=== PATIENT | female | born 1980 | race Hispanic/Latino ===

== ENCOUNTER 2021-12-27 23:59 | Emergency (ER) | payer SELFPAY ==
[2021-12-28] MEDS ORDERED: Boostrix 0.5 ML (Tdap) VIAL ONE (05:12)
== END 2021-12-28 03:19 | disposition home or self-care (01) ==
LOC: CSHERS 23:59
DX: S01.01XA Laceration without foreign body of scalp, initial encounter (principal); I10 Essential (primary) hypertension; W22.8XXA Striking against or struck by other objects, initial encounter; Z23 Encounter for immunization
CPT/HCPCS: 12002; 70450; 90471; 90715

== ENCOUNTER 2022-01-06 11:22 | Emergency (ER) | payer SELFPAY | END 2022-01-06 12:07 | disposition home or self-care (01) | LOC: CSHERS 11:22 | DX: S01.01XD Laceration without foreign body of scalp, subsequent encounter (principal); I10 Essential (primary) hypertension; X58.XXXD Exposure to other specified factors, subsequent encounter ==

== ENCOUNTER 2022-08-11 04:42 | Emergency (ER) | payer SELFPAY ==
[2022-08-11] MEDS ORDERED: Boostrix 0.5 ML (Tdap) VIAL (>/=7 yrs of age) ONE (04:49)
== END 2022-08-11 06:17 | disposition home or self-care (01) ==
LOC: CSHERS 04:42
DX: S06.0X0A Concussion without loss of consciousness, initial encounter (principal); I10 Essential (primary) hypertension; Y04.8XXA Assault by other bodily force, initial encounter
CPT/HCPCS: 70450; 90471; 90715

== ENCOUNTER 2023-02-27 19:25 | Emergency (ER) | payer OTHER, SELFPAY ==
[2023-02-27] MEDS ORDERED: Lidocaine 2% PF 5 ML VIAL ONE (21:17)
== END 2023-02-27 22:01 | disposition left against medical advice (07) ==
LOC: CSHERS 19:25
DX: S01.511A Laceration without foreign body of lip, initial encounter (principal); I10 Essential (primary) hypertension; Y04.2XXA Assault by strike against or bumped into by another person, initial encounter
CPT/HCPCS: 12052; J2001

== ENCOUNTER 2023-03-06 18:41 | Emergency (ER) | payer OTHER, SELFPAY | END 2023-03-06 20:05 | disposition left against medical advice (07) | LOC: CSHERS 18:41 | DX: Z53.21 Procedure and treatment not carried out due to patient leaving prior to being seen by health care provider (principal) ==

== ENCOUNTER 2023-03-07 16:25 | Emergency (ER) | payer OTHER, SELFPAY | END 2023-03-07 17:32 | disposition home or self-care (01) | LOC: CSHERS 16:25 | DX: S01.511D Laceration without foreign body of lip, subsequent encounter (principal); W18.30XD Fall on same level, unspecified, subsequent encounter ==

== ENCOUNTER 2023-08-09 14:29 | Emergency (ER) | payer OTHER | END 2023-08-09 15:10 | disposition home or self-care (01) | LOC: CSHERS 14:29 | DX: S61.412D Laceration without foreign body of left hand, subsequent encounter (principal); F17.210 Nicotine dependence, cigarettes, uncomplicated; X58.XXXD Exposure to other specified factors, subsequent encounter ==